=== PATIENT | male | born 1970 | race Caucasian/White ===

== ENCOUNTER 2020-08-01 10:25 | Emergency (ER) | payer OTHER ==
[~2020-08-01] VITALS: Ht 170.2 cm; Wt 95.3 kg
[2020-08-01] MEDS ORDERED: PROZAC10 M1 PO (10:31)
[2020-08-01] MEDS ORDERED: LISINOPRIL10 MG PO (10:31)
[2020-08-01] MEDS ORDERED: HIGH CHOLESTEROL (10:31)
[2020-08-01] MEDS ORDERED: CHILDREN'S ASPI81 M1 PO (10:31)
[2020-08-01 10:59] LABS: ABSOLUTE BASOPHILS 0.1 thou/uL (0.0-0.2); ABSOLUTE LYMPHOCYTES 1.3 thou/uL (0.8-5.3); ABSOLUTE MONOCYTES 0.4 thou/uL (0.0-1.2); ABSOLUTE NEUTROPHILS 4.4 thou/uL (1.6-8.1); BASOPHILS 2.4 %; EOSINOPHILS 0.3 %; HEMATOCRIT 43.4 % (42.0-52.0); HEMOGLOBIN 14.5 gm/dL (14.0-18.0); LYMPHOCYTES 20.8 %; MCH 30.9 pg (26.0-34.0); MCHC 33.4 g/dL (28.0-37.0); MCV 92.3 fL (80.0-100.0); MONOCYTES 6.9 %; MPV 8.9 fl. (7.2-11.1); NUCLEATED RBCS 0 /100WBC; PLATELET COUNT* 222 thou/uL (150-400); POLYS 69.6 %; RDW-CV 13.9 % (10.5-14.5); WBC 6.3 thou/uL (4.0-11.0)
[2020-08-01 11:09] LABS: CALCIUM 8.4 mg/dL (8.5-10.1); CREATININE 0.9 mg/dL (0.6-1.3); POTASSIUM 4.1 mmol/L (3.5-5.1)
[2020-08-01 11:11] LABS: APTT 25.5 Seconds (25.0-31.3); PROTIME 10.4 Seconds (9.20-11.50)
[2020-08-01 11:22] LABS: ALBUMIN 4.2 g/dL (3.4-5.0); CK-MB MASS 1.2 ng/mL (<0.5-3.6); TOTAL BILIRUBIN 0.3 mg/dL (<0.1-1.0); TOTAL PROTEIN 8.1 g/dL (6.4-8.2)
[2020-08-01 11:29] VITALS: BP 146/96
--- NOTE | 2020-08-02 09:47 | EKG ---
[place] [address] ELECTROCARDIOGRAM REPORT Name: NENA UPTON Room: [facility]#: [id number] Admission: 08/01/20 Attend Phys: Discharge: 08/01/20 Date of : 68 Date of Service: 08/01/20 1040 Report #: [id number] THIS REPORT FOR: //name// [facility] ED Test Date: 2020-08-01 Test Time: 10:40:53 Pat Name: NENA UPTON Department: Room: Gender: Dredge Mate: [facility] : 1970 Requested By: Richi Ruiz Order Number: [id number] MD: Jef Doran Measurements Intervals [place] Rate: 83 P: 78 [place]: 167 QRS: 25 QRSD: 97 T: -11 QT: 362 QTc: 426 Interpretive Statements Sinus rhythm Baseline wander in lead(s) V5,V6 No previous ECG available for comparison Electronically Signed On 08-02-2020 9:46:58 CDT by Jef Doran [email or web address] <ELECTRONICALLY SIGNED> By: Jef Doran MD, [facility] 08/02/20 0946 1040 1040 Jef Doran MD, [facility] /EPI
== END 2020-08-01 11:29 ==
LOC: M.ERS 10:25
PROVIDERS: Family Medicine
DX: R07.89 Other chest pain (principal); F10.129 Alcohol abuse with intoxication, unspecified; Y90.7 Blood alcohol level of 200-239 mg/100 ml; E78.00 Pure hypercholesterolemia, unspecified; Z88.2 Allergy status to sulfonamides